=== PATIENT | female | born 1935 | race Caucasian/White ===

== ENCOUNTER → 2017-10-18 | Outpatient (CLI) | payer MEDICARE ==
--- NOTE | 2017-10-18 14:38 | Diagnostic Imaging Report ---
PROCEDURE:CHEST 2 VIEWS TECHNIQUE:PA and lateral chest INDICATION:Pain between shoulder blades; shortness of breath COMPARISON:None. FINDINGS: Mild biapical fibronodular scar. Lungs are otherwise clear. Trace left hemidiaphragm elevation. No pleural effusions. Normal heart size for technique. Mild aortic arch and descending thoracic aortic calcification. Intact skeleton. CONCLUSION: No acute abnormality. Dictated by: Yariel Key M.D. on 10/18/2017 at 14:40 Electronically approved by: Yariel Key M.D. on 10/18/2017 at 14:40
== END ==
LOC: RAD 13:38
PROVIDERS: ATTEND Internal Medicine
DX: J41.0 Simple chronic bronchitis (principal); R06.02 Shortness of breath
CPT/HCPCS: 71046

== ENCOUNTER 2018-01-18 10:25 | Observation (INO) | payer MEDICARE ==
[~2018-01-18] VITALS: Ht 172.7 cm; Wt 85.3 kg
[2018-01-18] MEDS ORDERED: ASPIRIN 81 MG CHEW TAB PO ONE ×2 (10:45→13:00)
--- NOTE | 2018-01-18 11:09 | Diagnostic Imaging Report ---
PROCEDURE: A single AP view of the chest. COMPARISON: 10/18/17 INDICATIONS: IRREGULAR HEARTBEAT FINDINGS: Lines/tubes: None. Lungs: The lungs are well inflated. Biapical scarring. There is no evidence of pneumonia or pulmonary edema. Pleura: There is no significant pleural effusion or pneumothorax. Heart and mediastinum: The cardiac silhouette is mildly enlarged. Bones: No acute bony abnormality. IMPRESSION: 1. No acute cardiopulmonary disease. Dictated by: Isreal Joyner M.D. on 01/18/2018 at 11:14 Electronically approved by: Isreal Joyner M.D. on 01/18/2018 at 11:14
[2018-01-18 11:30] LABS: BASOPHILS % 0.2 % (0.0-1.0); EOSINOPHILS # (AUTO) 0.1 (0.0-0.4); EOSINOPHILS % 0.7 % (0.0-6.0); HEMATOCRIT 38.6 % (34.2-44.1); LYMPHOCYTES # (AUTO) 0.5 (1.0-3.2); LYMPHOCYTES % 6.1 % (18.0-39.1); MEAN CORPUSCULAR HEMOGLOBIN 30.7 pg (28-32); MEAN CORPUSCULAR HGB CONC 33.7 g/dL (31-35); MEAN CORPUSCULAR VOLUME 91.3 fL (81-99); MONOCYTES # (AUTO) 0.6 (0.2-0.8); MONOCYTES % 7.3 % (4.4-11.3); NEUTROPHILS # (AUTO) 6.9 (2.1-6.9); NEUTROPHILS % 85.3 % (38.7-80.0); PLATELET COUNT 208 x10e3/uL (140-360); RED BLOOD COUNT 4.23 x10e6/uL (3.6-5.1); RED CELL DISTRIBUTION WIDTH 13.2 % (11.7-14.4)
[2018-01-18 11:41] LABS: INR 1.06
[2018-01-18 11:42] LABS: PARTIAL THROMBOPLASTIN TIME 29.2 seconds (23.8-35.5)
[2018-01-18 11:48] LABS: ALBUMIN 3.7 g/dL (3.5-5.0); ALBUMIN/GLOBULIN RATIO 0.9 (0.8-2.0); ANION GAP 15.7 mmol/L (8-16); CALCIUM 10.1 mg/dL (8.4-10.2); CREATININE, SERUM 1.39 mg/dL (0.57-1.11); POTASSIUM 4.7 mmol/L (3.5-5.1)
[2018-01-18] MEDS ORDERED: LOPRESSOR25 MG PO (11:52)
[2018-01-18] MEDS ORDERED: OMEPRAZOLE20 MG PO (11:52)
[2018-01-18] MEDS ORDERED: LOSARTAN POTAS100 MG PO (11:52)
[2018-01-18] MEDS ORDERED: LEVOTHYROXINE75 MCG PO (11:52)
[2018-01-18 11:54] LABS: CREATINE KINASE MB 6.8 ng/mL (0-5.0)
[2018-01-18] MEDS: SODIUM CHLORIDE 0.9% 1000ML 1,000 ML IV SCH (13:07)
[2018-01-18 14:00] VITALS: BP 147/67
[2018-01-18 14:09] VITALS: BP 147/67
[2018-01-18 15:11] VITALS: BP 132/71
[2018-01-18 16:45] VITALS: BP 132/71
[2018-01-18] MEDS: METOPROLOL TARTRATE 25 MG TAB PO SCH (17:19)
--- NOTE | 2018-01-18 17:56 | Consultation ---
DATE OF CONSULTATION: January 18, 2018 CARDIAC CONSULTATION REASON FOR CONSULTATION: Palpitations, arrhythmia and vague chest pain. HISTORY: This is a delightful 82-year-old lady followed as my patient for the last several years. She is known to have a history of hypertension, hypercholesterolemia and hypothyroidism. She does have definitely finding of early sick sinus syndrome. She had transient episode of atrial arrhythmias in 2009 following loss of her . Since that time patient did not have any recurrence. She was seen in my office in September 2017. She was having what seems to be stable angina-like symptoms. She does have palpitation. We discussed everything together at that time and she was quite happy with medical therapy. She does not like to do any workup at that time. Patient came to the emergency room having "I overdid it for some time. I worked on bed and brushing and so on", having right shoulder pain but more important she had palpitations this morning. The patient felt palpitations and her blood pressure was higher. Usually, her blood pressure is 120-160 over 50-60 diastolic, but this morning her blood pressure was 190/100. She was very worried. She came to the emergency room, admitted for further management. Cardiac consultation is obtained. The first set of cardiac enzymes were normal. Her BUN and creatinine were elevated at 29 and 1.39. Her CK total of 61, MB 6.8 and troponin is 0.17 which is normal for this lab. Her EKG showed sinus bradycardia, nonspecific ST changes. HOME MEDICATIONS: Metoprolol tartrate 12.5 mg twice a day. Levothyroxine 75 mcg a day. Losartan 100 mg a day. Prilosec 20 mg a day. ALLERGIES: PENICILLIN. PAST MEDICAL HISTORY: 1. Hypertension. 2. Hypercholesterolemia. 3. Hypothyroidism. 4. DJD. 5. Hysterectomy. 6. Lumpectomy and radiation therapy in 2004. 7. Colonoscopy in March 2015 with polyp removal. SOCIAL HISTORY: She is a . She never smoked. She does not drink alcohol. She is retired from [employer]. FAMILY HISTORY: Father at age 88 with CVA. Mother age 91 of old age. She was hypertensive. One brother, no sister and no children. REVIEW OF SYSTEMS: GENERAL: No fever and no chills. HEENT: Allergies and hay fever. PULMONARY: No cough, no hemoptysis. CARDIAC: As per acute illness. In addition to that, there is namely no syncope or near syncope. GI: GERD symptoms. HEMATOLOGY: Easy bruising. : Increased frequency of urination. No hematuria and no dysuria. MUSCULOSKELETAL: Back pain. NEUROLOGIC: No weakness, no localized deficits. PHYSICAL EXAMINATION VITALS: Height of 5 feet, 9 inches, weight of 191 pounds. Blood pressure 140/50. Heart rate of 50. Respiratory rate of 18. Afebrile. HEENT: Pupils are equal and reactive. NECK: No elevation of jugular venous pulsation. No bruit. CHEST: Clear to auscultation and percussion. HEART: PMI 5th left intercostal space. Normal 1st and 2nd heart sounds. Soft ejection systolic murmur. ABDOMEN: Soft with no organomegaly. No abdominal bruits. EXTREMITIES: No cyanosis. No clubbing. No edema. NEUROLOGIC: No localized deficits. She is moving all extremities and all flanks are equal. IMPRESSION 1. Atrial arrhythmias. 2. Bradycardia. 3. Dyspnea on exertion. 4. Hypertension. 5. Hypothyroidism. Cardiac-singh this patient most likely does have sick sinus syndrome as evidenced by old Holter showing bradycardia. The patient is bradycardic on almost no dose of beta patito. Her other issue angina in this age group is quite possible. Plan will be for observation on telemetry. Patient''s BUN and creatinine are elevated. Will do serial cardiac enzymes. Observe patient's progression. Depending on the results of her cardiac enzymes and finding on telemetry further steps to be done. Care is discussed and explained to the patient. She understands and questions are answered. Job#: [id number]
[2018-01-18 18:54] LABS: CREATINE KINASE MB 4.6 ng/mL (0-5.0)
[2018-01-18 20:00] VITALS: BP 170/73
[2018-01-18 20:03] VITALS: BP 170/73
[2018-01-19] VITALS: BP 130/60
[2018-01-19 04:00] VITALS: BP 131/58
[2018-01-19] MEDS: SODIUM CHLORIDE 0.9% 1000ML 1,000 ML IV SCH (04:00)
[2018-01-19 05:33] LABS: BASOPHILS % 0.4 % (0.0-1.0); EOSINOPHILS # (AUTO) 0.2 (0.0-0.4); HEMATOCRIT 34.2 % (34.2-44.1); HEMOGLOBIN 11.3 g/dL (12.0-16.0); LYMPHOCYTES # (AUTO) 0.8 (1.0-3.2); LYMPHOCYTES % 14.4 % (18.0-39.1); MEAN CORPUSCULAR HEMOGLOBIN 30.4 pg (28-32); MEAN CORPUSCULAR VOLUME 91.9 fL (81-99); MONOCYTES # (AUTO) 0.6 (0.2-0.8); MONOCYTES % 11.3 % (4.4-11.3); NEUTROPHILS # (AUTO) 3.8 (2.1-6.9); NEUTROPHILS % 70.5 % (38.7-80.0); PLATELET COUNT 172 x10e3/uL (140-360); RED BLOOD COUNT 3.72 x10e6/uL (3.6-5.1); RED CELL DISTRIBUTION WIDTH 13.3 % (11.7-14.4)
[2018-01-19 05:59] LABS: ALBUMIN 3.2 g/dL (3.5-5.0); ANION GAP 13.5 mmol/L (8-16); CALCIUM 9.1 mg/dL (8.4-10.2); CREATININE, SERUM 1.23 mg/dL (0.57-1.11); POTASSIUM 4.5 mmol/L (3.5-5.1)
[2018-01-19] MEDS ORDERED: LEVOTHYROXINE SODIUM 75 MCG TAB PO SCH (06:00)
[2018-01-19 06:19] LABS: CHOL/HDL RATIO 3.8 (3.0-3.6); THYROID STIMULATING HORMONE 1.572 uIU/mL (0.350-4.940)
[2018-01-19] MEDS ORDERED: PANTOPRAZOLE SOD 40 MG TABEC PO SCH (07:30)
[2018-01-19 07:58] VITALS: BP 178/70
[2018-01-19] MEDS: METOPROLOL TARTRATE 25 MG TAB PO SCH (08:19)
[2018-01-19] MEDS ORDERED: LOSARTAN POTASSIUM 100 MG TAB PO SCH (09:00)
--- NOTE | 2018-01-19 09:11 | History and Physical ---
SHORTSTAY SUMMARY ADMIT DIAGNOSES: 1. Hypertensive urgency. 2. Hypertensive heart disease. 3. Laolq-mo-upwnlmm diastolic congestive heart failure. 4. Vbwyq-iy-apedvtk renal failure. 5. History of stage 3 chronic kidney disease. 6. Atrial fibrillation. 7. Sinus bradycardia. HOSPITAL COURSE/HPI: This is an 82-year-old white woman, who was initially admitted to [facility] with diagnoses of hypertensive urgency and htqed-bf-rdajjal renal failure. During this hospitalization, patient's renal function did improve with intravenous fluids. Patient's BUN and creatinine were 29 and 1.39 on admission, on day of discharge were 26 and 1.23 respectively. Patient states she presented to emergency room because her blood pressure was very high on day of admission and she felt jittery. Patient denied any chest pain or tightness. In the emergency room, patient had 12-lead EKG done, which revealed sinus bradycardia, but no evidence of acute myocardial ischemia or infarction. Patient was found to have LDL cholesterol of 132 mg/dL. Patient underwent 3 sets of cardiac enzymes and they were not consistent with acute myocardial ischemia or infarction. Her hospitalization was unremarkable. Patient was seen by tubing oiler during this hospitalization, namely, Dr. Jhon Martinez, who stated the patient most likely had sick sinus syndrome, but he was going to continue low-dose beta patito namely metoprolol tartrate 12.5 mg twice a day for her atrial fibrillation. Patient did undergo a 2D echocardiogram during this hospitalization, which revealed a preserved left ventricular ejection fraction of 60% to 65%, but it did reveal findings consistent with diastolic dysfunction namely left ventricular hypertrophy and left atrial enlargement. Patient's condition on discharge was stable. PAST MEDICAL HISTORY: 1. Dyslipidemia. 2. Stage 3 chronic kidney disease. 3. Hypertensive heart disease. 4. Hypothyroidism. 5. Mild obesity. 6. Atrial fibrillation. 7. GERD. ALLERGIES: PENICILLIN. FAMILY HISTORY: Mother had heart disease but of stroke at age 91. Patient's father at age 88. SURGICAL HISTORY: 1. Total abdominal hysterectomy. 2. Bilateral salpingo-oophorectomy secondary to endometriosis in 1956. 3. Left breast lumpectomy with subsequent radiation. SOCIAL HISTORY: This woman is a . 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 No personal tobacco use, but she was exposed to second-hand tobacco smoke throughout her life. No alcohol use. Patient has no children. Patient lives alone. HOME MEDICATIONS: 1. Levothyroxine 75 mcg daily. 2. Omeprazole 20 mg daily. 3. Metoprolol tartrate 25 mg b.i.d. 4. Losartan 100 mg nightly. PHYSICAL EXAMINATION: GENERAL: She is awake, alert, and fully oriented, in no distress. Very pleasant and cooperative with exam. VITAL SIGNS: Height is 5 feet 8 inches. Weight is 188 pounds. Blood pressure on admission was 201/98, currently it is 131/58. Pulse is 53, respiratory rate is 18, oxygen saturation 100% on room air, temperature 95.0. INTEGUMENT: Skin is warm and dry. No pallor, jaundice, or diaphoresis. HEENT: Anicteric sclerae with moist mucous membranes. NECK: Supple. No evidence of jugular venous distention. CARDIOVASCULAR: Distant heart sounds. Bradycardic rate. Regular rhythm. Patient has systolic ejection murmur and S3 gallop. LUNGS: No rales, no rhonchi, no wheeze. ABDOMEN: Obese, yet benign. EXTREMITIES: No edema or deformity. NEUROLOGIC: Intact. DISCHARGE DIAGNOSES: 1. Hypertensive urgency, resolved. 2. Hypertensive heart disease. 3. Ecuff-ni-bfjbvli diastolic congestive heart failure, resolved. 4. Chronic diastolic congestive heart failure. 5. Jmfht-ni-mlcnfif renal failure, resolved. 6. Stage 3 chronic kidney disease. 7. Atrial fibrillation. 8. Bradycardia, likely iatrogenic. 9. Sick sinus syndrome, likely. PLAN: 1. Patient will continue her home medications. 2. Patient will follow up with her tubing oiler, namely Dr. Jhon Martinez in the next 2 weeks. 3. Will honor patient wishes and not start lipid-lowering therapy namely statin for her dyslipidemia. 4. Recommend that patient limit dietary sodium intake. I spent 35 minutes in the care of this patient. Job#: [id number] DR MOISE
[2018-01-19] MEDS ORDERED: AMLODIPINE BESYL5 MG PO (11:35)
[2018-01-19 11:50] VITALS: BP 147/64
== END 2018-01-19 14:16 | disposition home or self-care (01) ==
LOC: ER 10:25 → ERHOLD 13:18 → INTOOBSV 13:18 → IMCU 13:32
PROVIDERS: ADMIT Internal Medicine; ATTEND Internal Medicine
DX: I16.0 Hypertensive urgency (principal); I48.91 Unspecified atrial fibrillation; Z85.3 Personal history of malignant neoplasm of breast; I13.0 Hypertensive heart and chronic kidney disease with heart failure and stage 1 through stage 4 chronic kidney disease, or unspecified chronic kidney disease; N18.3 Chronic kidney disease, stage 3 (moderate); I50.33 Acute on chronic diastolic (congestive) heart failure; R00.2 Palpitations; K21.9 Gastro-esophageal reflux disease without esophagitis; N17.9 Acute kidney failure, unspecified; R00.1 Bradycardia, unspecified; E78.5 Hyperlipidemia, unspecified; E03.9 Hypothyroidism, unspecified; Z88.0 Allergy status to penicillin; Z82.3 Family history of stroke; Z82.49 Family history of ischemic heart disease and other diseases of the circulatory system
CPT/HCPCS: 36415 ×2; 71045; 80053 ×2; 80061; 82550 ×2; 82553 ×2; 83690; 83880; 84443; 84484 ×2; 85025 ×2; 85610; 85730; 93005; 93306; 99284; G0378 ×2; J7030 ×2; S0164

== ENCOUNTER 2018-08-20 06:08 | Observation (INO) | payer MEDICARE ==
[~2018-08-20] VITALS: Ht 175.3 cm; Wt 85.4 kg
[~2018-08-20 06:08] MED LIST: AMLODIPINE BESYL5 MG PO; LEVOTHYROXINE75 MCG PO; LOPRESSOR25 MG PO; LOSARTAN POTAS100 MG PO; OMEPRAZOLE20 MG PO
[2018-08-20] MEDS ORDERED: ENOXAPARIN INJ 80 MG/0.8 ML SYR SC STA (06:20)
[2018-08-20] MEDS ORDERED: AMIODARONE HCL 150MG 100 ML IV SCH (06:30)
[2018-08-20] MEDS ORDERED: AMIODARONE HCL 360MG 200 ML IV SCH (06:30)
[2018-08-20] MEDS ORDERED: AMIODARONE 900MG 500 ML IV ONE (06:34)
[2018-08-20 06:37] LABS: BASOPHILS % 0.6 % (0.0-1.0); EOSINOPHILS # (AUTO) 0.1 (0.0-0.4); EOSINOPHILS % 2.6 % (0.0-6.0); HEMATOCRIT 35.5 % (34.2-44.1); HEMOGLOBIN 11.9 g/dL (12.0-16.0); LYMPHOCYTES # (AUTO) 0.5 (1.0-3.2); LYMPHOCYTES % 10.1 % (18.0-39.1); MEAN CORPUSCULAR HEMOGLOBIN 30.7 pg (28-32); MEAN CORPUSCULAR HGB CONC 33.5 g/dL (31-35); MEAN CORPUSCULAR VOLUME 91.7 fL (81-99); MONOCYTES # (AUTO) 0.6 (0.2-0.8); MONOCYTES % 10.6 % (4.4-11.3); NEUTROPHILS # (AUTO) 4.1 (2.1-6.9); NEUTROPHILS % 75.9 % (38.7-80.0); PLATELET COUNT 174 x10e3/uL (140-360); RED BLOOD COUNT 3.87 x10e6/uL (3.6-5.1); RED CELL DISTRIBUTION WIDTH 12.9 % (11.7-14.4)
[2018-08-20] MEDS ORDERED: AMIODARONE 900MG 500 ML IV SCH ×3 (06:45→12:00)
[2018-08-20] MEDS ORDERED: HYDROCHLOROTHIA25 MG PO (06:48)
[2018-08-20] MEDS ORDERED: BENICAR20 MG PO (06:48)
[2018-08-20 06:56] LABS: INR 0.9; PROTHROMBIN TIME 12.6 seconds (11.9-14.5)
[2018-08-20 06:57] LABS: PARTIAL THROMBOPLASTIN TIME 32.8 seconds (23.8-35.5)
--- NOTE | 2018-08-20 07:00 | NUR ---
BEDSIDE REPORT GIVEN TO MORGAN CONTEH DAY SHIFT NURSE.
[2018-08-20 07:03] LABS: ALBUMIN 3.4 g/dL (3.5-5.0); ALBUMIN/GLOBULIN RATIO 0.9 (0.8-2.0); ANION GAP 13.7 mmol/L (8-16); CALCIUM 10.1 mg/dL (8.4-10.2); CREATININE, SERUM 1.41 mg/dL (0.57-1.11); POTASSIUM 3.7 mmol/L (3.5-5.1)
--- NOTE | 2018-08-20 07:05 | NUR ---
Xray at bedside.
--- NOTE | 2018-08-20 07:10 | NUR ---
Xray leaves bedside.
[2018-08-20 07:11] LABS: CREATINE KINASE MB 2.6 ng/mL (0-5.0)
[2018-08-20 07:20] LABS: CLARITY,URINE CLEAR (CLEAR); COLOR,URINE STRAW (YELLOW)
[2018-08-20 07:21] LABS: BILIRUBIN,URINE NEGATIVE (NEGATIVE); KETONES,URINE NEGATIVE (NEGATIVE); LEUKOCYTE ESTERASE ,URINE NEGATIVE (NEGATIVE); NITRITE,URINE NEGATIVE (NEGATIVE); PROTEIN,URINE DIPSTICK NEGATIVE (NEGATIVE); URINE UROBILINOGEN 0.2 mg/dL (0.2 - 1)
[2018-08-20 07:25] LABS: WBC,URINE (MAN) 0-5 /HPF (0-5)
[2018-08-20 07:26] LABS: EPITHELIAL CELLS,URINE FEW /LPF
--- NOTE | 2018-08-20 07:51 | Diagnostic Imaging Report ---
Examination: Single AP view of the chest. COMPARISON: None. INDICATION: Chest pain DISCUSSION: Lines/tubes: None. Lungs: The lungs are well inflated and clear. No pneumonia or pulmonary edema. Pleura: No pleural effusion or pneumothorax. Heart and mediastinum: The heart and the mediastinum are unremarkable. Bones and soft tissues: No acute bony abnormalities. IMPRESSION: 1. No acute cardiopulmonary abnormalities. Signed by: Dr. Robert Sparks M.D. on 08/20/2018 7:48 AM
[2018-08-20] MEDS ORDERED: ASPIRIN 81 MG CHEW TAB PO ONE ×2 (08:15→17:30)
--- NOTE | 2018-08-20 08:59 | NUR ---
Amiodarone az solorzano per request. Addendum: 08/20/18 at 0917 by BRANDO Amiodarone az solorzano per KARLY HARGROVE; Dr. St's request.
[2018-08-20 09:39] LABS: EOSINOPHILS % (MANUAL) 6 % (0-7); LYMPHOCYTES % (MANUAL) 9 % (19-48); MONOCYTES % (MANUAL) 11 % (3.4-9.0); NEUTROPHILS % (MANUAL) 74 % (40-74); PLATELET ESTIMATE ADEQUATE; PLATELET MORPHOLOGY COMMENT NORMAL; RBC MORPHOLOGY COMMENT NORMAL
[2018-08-20 09:58] VITALS: BP 163/67
--- NOTE | 2018-08-20 10:29 | NUR ---
Recvd patient from ER, AAOx3, Denies any chest pain or SOB, assisted her to bed, call light in reach, resp even and unlabored , paged Dr Juan Chen for the consult
--- NOTE | 2018-08-20 11:25 | NUR ---
Dr Poole here for rounds
[2018-08-20 11:30] VITALS: BP 163/67
[2018-08-20 11:34] VITALS: BP 156/65
--- NOTE | 2018-08-20 14:48 | History and Physical ---
HISTORY OF PRESENT ILLNESS: An 83 years old white female with past medical history positive for hypertension and paroxysmal atrial fibrillation. Apparently, she was doing well and then suddenly started having chest pain and palpitations. She came to the emergency room, she was found to have atrial fibrillation with rapid ventricular response, amiodarone was given and heart rate was under control. The patient is chest pain-free right now. REVIEW OF SYSTEMS: CARDIOVASCULAR: She had palpitation and chest pain, which were resolved after heart rate was under control with amiodarone in the emergency room. No shortness of breath and no palpitation right now. RESPIRATORY: No shortness of breath. No cough. GASTROINTESTINAL: No nausea, no vomiting, no diarrhea. GENITOURINARY: No urinary frequency. No dysuria. ALLERGIES: SHE IS ALLERGIC TO PENICILLIN. SOCIAL HISTORY: She does not smoke. She does not drink. PAST MEDICAL HISTORY: Hypertension, history of paroxysmal atrial fibrillation. She had a prior episode of . PHYSICAL EXAMINATION: VITAL SIGNS: Blood pressure 163/67, temperature 96.7, heart rate 67 per minute, respiratory rate 18 per minute, oxygen saturation 100%. HEART: Showed regular rhythm. No murmur or added sound. LUNGS: Clear bilaterally. ABDOMEN: Soft. EXTREMITIES: Show no evidence of cyanosis, edema, or trauma. DIAGNOSTIC STUDIES: EKG show atrial fibrillation with rapid ventricular response. No evidence of any ST-segment elevation or depression. IMPRESSION: 1. Paroxysmal atrial fibrillation with rapid ventricular response, in normal sinus rhythm right now. 2. Hypertension with chronic renal failure. 3. Acute on chronic renal failure stage 3. 4. Hypertension with chronic renal insufficiency. 5. Anemia of chronic disease according to chronic renal insufficiency. 6. Chest pain more likely related to the episode of atrial fibrillation. PLAN OF TREATMENT: Cardiology consultation scheduled with telemetry. She received a bolus of amiodarone. She received a one time dose of Lovenox. She was started on aspirin. I am going to start her on metoprolol twice a day twice a day and also Eliquis 5 mg p.o. twice a day. The patient is feeling much much better right now. We are going to repeat a BMP tomorrow. Raman Virgilio, MD LAS/MAIA /[id number]
[2018-08-20 15:37] VITALS: BP 164/70
--- NOTE | 2018-08-20 16:55 | NUR ---
Spoked with Dr Juan Chen regarding lab results and patient's condition, new orders recvd to give aspirin 81mg 1 dose now, [id number] BID, He said he will see patient medical record consultant tomorrow, patient aware
[2018-08-20] MEDS: METOPROLOL TARTRATE 25 MG TAB PO SCH (17:15)
[2018-08-20] MEDS: DRONEDARONE 400 MG TAB PO SCH (17:25)
[2018-08-20] MEDS: PANTOPRAZOLE SOD 40 MG TABEC PO SCH (17:53)
[2018-08-20] MEDS: APIXABAN 5 MG TABLET PO SCH (17:53)
--- NOTE | 2018-08-20 18:24 | NUR ---
patient resting in bed, alert with no distress, call light in reach
--- NOTE | 2018-08-20 19:00 | NUR ---
Report and rounds completed. Resting in bed watching TV. No issues or concerns. Call light within reach. Will Continue to monitor.
[2018-08-20 20:00] VITALS: BP 131/60
--- NOTE | 2018-08-20 22:00 | NUR ---
In bed watching TV. No issues or concerns at this time.Call light within reach. Will continue to monitor.
[2018-08-21] VITALS: BP 155/63
[2018-08-21 00:38] LABS: CREATINE KINASE MB 4.3 ng/mL (0-5.0)
--- NOTE | 2018-08-21 00:47 | NUR ---
Tele called and stated HR 48. Patient lying in bed on left side. Denies any sob or chest pain. Informed that heart rate in 40's and stated " that is not unusual for me to be in 40's."Will continue to monitor.
--- NOTE | 2018-08-21 02:00 | NUR ---
Resting in bed, eyes closed resp even and unlabored. Call light within reach. Will continue to monitor.
[2018-08-21 05:03] LABS: BASOPHILS % 0.2 % (0.0-1.0); EOSINOPHILS # (AUTO) 0.2 (0.0-0.4); HEMATOCRIT 32.4 % (34.2-44.1); HEMOGLOBIN 10.7 g/dL (12.0-16.0); LYMPHOCYTES # (AUTO) 0.7 (1.0-3.2); LYMPHOCYTES % 14.8 % (18.0-39.1); MEAN CORPUSCULAR HEMOGLOBIN 30.6 pg (28-32); MEAN CORPUSCULAR VOLUME 92.6 fL (81-99); MONOCYTES # (AUTO) 0.7 (0.2-0.8); MONOCYTES % 13.6 % (4.4-11.3); NEUTROPHILS # (AUTO) 3.4 (2.1-6.9); NEUTROPHILS % 68.2 % (38.7-80.0); PLATELET COUNT 178 x10e3/uL (140-360); RED CELL DISTRIBUTION WIDTH 12.9 % (11.7-14.4)
[2018-08-21 05:32] LABS: ANION GAP 10.6 mmol/L (8-16); CALCIUM 9.4 mg/dL (8.4-10.2); CREATININE, SERUM 1.43 mg/dL (0.57-1.11); POTASSIUM 4.6 mmol/L (3.5-5.1)
[2018-08-21 05:47] LABS: CHOL/HDL RATIO 4.1 (3.0-3.6)
[2018-08-21] MEDS ORDERED: LEVOTHYROXINE SODIUM 75 MCG TAB PO SCH (06:00)
[2018-08-21] MEDS ORDERED: OLMESARTAN 20 MG TAB PO SCH (06:00)
--- NOTE | 2018-08-21 06:00 | NUR ---
Just finished shower. Sitting in bed. Call light within reach. No issues or concerns. Will continue to monitor.
--- NOTE | 2018-08-21 07:00 | NUR ---
rounded with car shifter nurse, patient aware of change. Patient in no distress, call villalpando within reach and bed in lowest position.
[2018-08-21 08:00] VITALS: BP 153/65
[2018-08-21] MEDS: PANTOPRAZOLE SOD 40 MG TABEC PO SCH (08:00)
[2018-08-21] MEDS: DRONEDARONE 400 MG TAB PO SCH (08:00)
[2018-08-21 08:24] VITALS: BP 153/65
[2018-08-21] MEDS ORDERED: MULTAQ400 MG PO (09:10)
[2018-08-21] MEDS ORDERED: ASPIRIN81 MG PO (09:11)
[2018-08-21] MEDS: APIXABAN 5 MG TABLET PO SCH (09:30)
[2018-08-21] MEDS: METOPROLOL TARTRATE 25 MG TAB PO SCH (09:30)
--- NOTE | 2018-08-21 10:30 | NUR ---
Patient alert and oriented. Discharge instructions given at this time, patient verbalized understanding. IV discontinued at this time, catheter in tact and pressure dressing applied. Patient to be wheeled from floor via wheelchair to personal auto for friend to drive home.
--- NOTE | 2018-08-21 13:59 | Consultation ---
DATE OF CONSULTATION: 08/21/2018 Cardiology Consultation REASON FOR CONSULTATION: Atrial fibrillation and chest pain. HISTORY OF PRESENT ILLNESS: Ms. Zelaya is a delightful 83-year-old lady, who is known to us, with history of hypertension, hypercholesterolemia, hypothyroidism, and signs of early sick sinus syndrome. She has had history of paroxysmal atrial arrhythmias in the past, specifically an episode of atrial fibrillation 10 years ago and most recently January 2018. At that time, we had a long discussion with her in terms of pharmacotherapy; however, due to her perceived risks and benefits, the patient has refused traditional therapy for atrial fibrillation and was hesitant for any sort of blood thinner therapy. The patient reports that at 4:30 the night before in the morning, she had 1-hour episode of heart racing, beating very fast associated with mild substernal chest discomfort and just not feeling well. She reports checking her vital signs and noted her blood pressure was 130s/70, however, her heart rate was noted to be 150s-160s. She called EMS due to persistence of symptoms and brought her into the emergency room here at [facility], where she was noted to be in AFib with RVR and EKG showing some subendocardial ischemia with this rapid heart rate. She was initiated on IV amiodarone infusion, which popped her back into normal sinus rhythm and received dose of Lovenox. Since then, here she has had no further recurrences of any atrial arrhythmias and was stared on Eliquis therapy empirically. We are visiting the patient today with a long discussion in terms of natural history of atrial fibrillation and re-discussion of different pharmacotherapy options including rate rhythm control as well as need for systemic anticoagulant therapy for thromboembolic prophylaxis purposes. The patient denies any palpitations yesterday and denies any more chest discomfort. Upon discussion of review of systems, the patient does report a history of longstanding GERD for which she takes Prilosec every other day. She does report when she eats that she frequently has a dysphagia type symptom that last 20 minutes and states that in the process interested in going to Dr. Smith, her GI, for further evaluation. We had a long discussion today and the patient is hesitant and not interested in full anticoagulant therapy at this time and states that she needs to talk to her friends first to get their impression of it. The patient denies any syncope or near syncope. PAST MEDICAL HISTORY: 1. Hypertension, essential. 2. Hypercholesterolemia. 3. Hypothyroidism. 4. History of hysterectomy. 5. DJD. 6. GERD. 7. History of lumpectomy and radiation therapy in 2004. 8. History of colonoscopy in March 2015 with polyp removal. 9. History of paroxysmal AFib as noted above. FAMILY HISTORY: Father at 88 with a stroke. Mother at 91 with old age. One brother, no sister, and no children. SOCIAL HISTORY: She is . She is a lifelong nonsmoker. Denies any alcohol or illicit drug use. ALLERGIES: PENICILLIN. CURRENT MEDICATIONS: At home include hydrochlorothiazide 12.5 mg daily, Synthroid 75 mcg daily, Dyalsl19.5 daily, Benicar 40 mg daily, Prilosec 20 mg every other day. REVIEW OF SYSTEMS: GENERAL: Denies any fevers, chills, or changes. HEENT: Has seasonal allergies and hay fever, but denies any visual complaints, sore throat, stuffiness. RESPIRATORY: Denies any pleuritic chest pain, shortness of breath, or cough. CARDIOVASCULAR: As per HPI. GI: Does have chronic GERD symptoms as noted above with dysphagia. Denies any bright red blood per rectum, melena, or hematemesis. HEMATOLOGY: Positive for mild anemia and easy bruising. : Denies any pyuria or hematuria. Does have occasional urge incontinence and urinary frequency. MUSCULOSKELETAL: Has chronic lower back pain. Denies any leg swelling or typical claudications. SKIN: No rashes. NEUROLOGIC: Denies any focal weakness, numbness, tingling, seizures, headache, or history of TIA or stroke. Remainder of review of systems is negative for other PHYSICAL EXAMINATION: VITAL SIGNS: Height of 69 inches, weight of 188 pounds, BMI is 27.8. Temperature of 97.9, pulse of 53, respiratory rate of 20, blood pressure of 155/63, and O2 sat 98% on room air. GENERAL: This is a well-nourished, well-developed lady, who is currently in no apparent distress. HEENT: Normocephalic, atraumatic. Pupils are equal, round, and reactive. Extraocular movements are intact. Oropharynx is clear. NECK: No elevation of jugular venous pulsation. No carotid bruits. CARDIOVASCULAR: Bradycardic. Normal S1, S2. Soft 1/6 systolic murmur at left lower sternal border. LUNGS: Clear to auscultation bilaterally with good air entry. ABDOMEN: Soft, nontender, and nondistended. Normoactive bowel sounds. No hepatosplenomegaly. BACK: No costovertebral angle tenderness. EXTREMITIES: Warm with 1 to 2+ bilateral radial pulses, 1+ pedal pulses. No edema. NEUROLOGIC: Cranial nerves II through XII are intact. Sensory grossly nonfocal. PSYCH: Normal fluent speech. Appropriate affect. No LABORATORY DATA: White count 4.9, hemoglobin 10.7, hematocrit 32.4, platelets are 178. Sodium 136, potassium 4.6, chloride 105, bicarb 25, BUN 35, creatinine 1.43. INR is 0.9. Total cholesterol 224, HDL 55, LDL 148. Troponin went from 0.013 to 0.288 to 0.238. Chest x-ray is unremarkable. EKG revealed atrial fibrillation with rapid ventricular response, heart rate more than 140s and some changes concerning for subendocardial ischemia. DIAGNOSES: 1. Paroxysmal atrial fibrillation with rapid ventricular response, has previously refused traditional therapy. 2. Hypertension, essential. 3. Marginally elevated troponin secondary to paroxysmal atrial fibrillation with rapid ventricular response. 4. Likely element of sick sinus syndrome/tachybrady syndrome without symptoms at the present time. 5. Hypercholesterolemia. 6. Hypothyroidism. 7. Gastroesophageal reflux disease. 8. Anemia. PLAN/RECOMMENDATIONS: 1. We had extensive discussion today with the patient in terms of underlying rhythm issues and introduced concept of different pharmacotherapy options along with their limitations. The patient would not likely be a good candidate for more aggressive rate control in light of her underlying low heart rate and bradycardia. 2. We will recommend rhythm control strategy and due to her concerns of different side effects, we will attempt to try to give her Multaq for now. 3. In terms of thromboembolic prophylaxis, we discussed anticoagulant therapy versus antiplatelet therapy and the patient is adamantly against anticoagulant therapy for the time being despite noting that this is the standard of care. In the meantime, she wishes just to be on aspirin daily and we will discuss with her as an outpatient in terms of different pharmacotherapy options. 4. We can consider ischemic risk stratification as an outpatient, but believe that her cardiopulmonary symptoms were largely due to her rhythm abnormality with borderline elevation of troponin. 5. From a cardiovascular standpoint, okay to go home and we can follow up with her within one week's worth of time. MD CHEN Salas/MAIA /[id number]
--- NOTE | 2018-08-22 10:23 | Discharge Summary ---
ADMITTING DIAGNOSES: 1. Paroxysmal atrial fibrillation. 2. Hypertensive heart disease. 3. Stage 3 chronic kidney disease. 4. Chronic diastolic congestive heart failure. DISCHARGE DIAGNOSES: 1. Paroxysmal atrial fibrillation. 2. Hypertensive heart disease. 3. Chronic diastolic congestive heart failure. 4. Stage 3 chronic kidney disease. 5. Hyperlipidemia. 6. Statin intolerance. HOSPITAL COURSE: This is an 83-year-old white woman who was admitted to [facility] with diagnosis of paroxysmal atrial fibrillation. She also has an underlying history of hypertension, stage 3 chronic kidney disease, and diastolic heart failure. The patient underwent echocardiogram during this hospitalization, which revealed a preserved left ventricular ejection fraction of 55%, but it did reveal findings consistent with diastolic heart failure namely left atrial enlargement as well as concentric left ventricular hypertrophy. During this hospitalization, the patient was initially given subcutaneous enoxaparin and oral apixaban for atrial fibrillation. The patient stated that she did not want to proceed with any anticoagulation. She was also found to have an elevated LDL cholesterol during this hospitalization with a level of 148 mg/dL. The patient's total cholesterol is 224 mg/dL. The patient's HDL cholesterol is 55 mg/dL. The patient's triglycerides were 103 mg/dL. The patient states she has a history of statin intolerance, specifically she experiences extreme leg cramps when she takes statin therapy. The patient was seen by her measurement supervisor during this hospitalization, Dr. Evert Martinez. She also underwent serial electrocardiograms as well as cardiac enzymes, which did not reveal any evidence of acute myocardial ischemia or infarction. Her brief hospitalization was unremarkable. CONDITION ON DISCHARGE: Stable. DISCHARGE MEDICATIONS: 1. Multaq 400 mg b.i.d. 2. Benicar 40 mg daily. 3. Pantoprazole 40 mg daily. 4. Metoprolol tartrate 12.5 mg b.i.d. 5. Levothyroxine 75 mcg daily. FOLLOWUP INSTRUCTIONS: The patient is instructed to follow up with Dr. Evert Martinez within next 7-10 days and with her primary care physician namely myself, Dr. Travis Tesfaye within 2 weeks. MD DCIK Anthony/MAIA /[id number]
== END 2018-08-21 10:47 | disposition home or self-care (01) ==
LOC: ER 06:08 → ERHOLD 08:07 → IMCU 09:58
PROVIDERS: ADMIT Internal Medicine; ATTEND Internal Medicine
DX: I48.0 Paroxysmal atrial fibrillation (principal); I13.0 Hypertensive heart and chronic kidney disease with heart failure and stage 1 through stage 4 chronic kidney disease, or unspecified chronic kidney disease; I50.32 Chronic diastolic (congestive) heart failure; N18.3 Chronic kidney disease, stage 3 (moderate); N17.9 Acute kidney failure, unspecified; E03.9 Hypothyroidism, unspecified; D63.1 Anemia in chronic kidney disease; E78.5 Hyperlipidemia, unspecified; E78.00 Pure hypercholesterolemia, unspecified; K21.9 Gastro-esophageal reflux disease without esophagitis; D64.9 Anemia, unspecified; Z82.49 Family history of ischemic heart disease and other diseases of the circulatory system; Z88.8 Allergy status to other drugs, medicaments and biological substances
CPT/HCPCS: 36415 ×2; 71045; 80048; 80053; 80061; 81001; 82550; 82553; 84484; 85025 ×2; 85610; 85730; 93005; 93306; 99284; G0378 ×2; J1650; S0164 ×2

== ENCOUNTER 2018-12-05 22:34 | Emergency (ER) | payer MEDICARE ==
[~2018-12-05] VITALS: Ht 175.3 cm; Wt 85.3 kg
[~2018-12-05 22:34] MED LIST changes: +ASPIRIN81 MG PO; +BENICAR20 MG PO; +HYDROCHLOROTHIA25 MG PO; +MULTAQ400 MG PO
[2018-12-06 00:18] VITALS: BP 148/48
== END 2018-12-06 00:22 | disposition home or self-care (01) ==
LOC: ER 22:34
DX: I10 Essential (primary) hypertension (principal)
CPT/HCPCS: 99283

== ENCOUNTER 2019-03-11 22:02 | Emergency (ER) | payer MEDICARE ==
[~2019-03-11] VITALS: Ht 175.3 cm; Wt 83.9 kg
== END 2019-03-11 23:20 | disposition home or self-care (01) ==
LOC: FSED 22:02
DX: K64.4 Residual hemorrhoidal skin tags (principal); I12.9 Hypertensive chronic kidney disease with stage 1 through stage 4 chronic kidney disease, or unspecified chronic kidney disease; N18.9 Chronic kidney disease, unspecified; I48.91 Unspecified atrial fibrillation; E03.9 Hypothyroidism, unspecified; K21.9 Gastro-esophageal reflux disease without esophagitis; Z85.3 Personal history of malignant neoplasm of breast; Z79.82 Long term (current) use of aspirin
CPT/HCPCS: 80053; 85025; 85610; 99283

== ENCOUNTER → 2019-06-15 | Outpatient (CLI) | payer MEDICARE ==
[~2019-06-15] MED LIST changes: +LEVAQUIN500 MG PO; +PREDNISONE20 MG PO; +SYMBICORT 16010.2 GM IH
--- NOTE | 2019-06-15 13:54 | Diagnostic Imaging Report ---
Chest, PA and lateral. History: Cough. Comparison: 08/20/2018, 2017, 10/18/2017 Discussion: The cardiomediastinal silhouette and pulmonary vasculature are within normal limits. The lungs are clear without evidence of consolidation or effusion. There are no acute osseous abnormalities. IMPRESSION: No radiographic evidence of acute cardiopulmonary abnormality. Signed by: Dave Cool MD on 06/15/2019 1:51 PM
== END ==
LOC: RAD 12:41
PROVIDERS: ATTEND Internal Medicine
DX: R05 Cough (principal)
CPT/HCPCS: 71046

== ENCOUNTER 2019-08-16 12:49 | Outpatient (RCR) | payer MEDICARE | END 2019-08-18 | LOC: PT 12:49 | PROVIDERS: ATTEND Specialist | DX: S13.4XXA Sprain of ligaments of cervical spine, initial encounter (principal); M54.2 Cervicalgia; M62.81 Muscle weakness (generalized); R29.3 Abnormal posture ==

== ENCOUNTER 2019-09-04 13:00 | Outpatient (RCR) | payer MEDICARE | END 2019-09-18 | LOC: PT 13:00 | PROVIDERS: ATTEND Specialist | DX: S13.4XXA Sprain of ligaments of cervical spine, initial encounter (principal); M54.2 Cervicalgia; M62.81 Muscle weakness (generalized); R29.3 Abnormal posture ==

== ENCOUNTER 2020-10-16 09:57 | Outpatient (RCR) | payer MEDICARE | END 2020-10-17 | LOC: PT 09:57 | PROVIDERS: ATTEND Internal Medicine | DX: M51.36 Other intervertebral disc degeneration, lumbar region (principal) ==

== ENCOUNTER 2020-11-13 09:46 | Outpatient (RCR) | payer MEDICARE | END 2020-11-17 | LOC: PT 09:46 | PROVIDERS: ATTEND Internal Medicine ==

== ENCOUNTER 2020-12-11 10:43 | Outpatient (RCR) | payer MEDICARE | END 2020-12-17 | LOC: PT 10:43 | PROVIDERS: ATTEND Internal Medicine | DX: M51.86 Other intervertebral disc disorders, lumbar region (principal) ==

== ENCOUNTER 2022-01-16 10:57 | Observation (INO) | payer MEDICARE ==
[~2022-01-16] VITALS: Ht 172.7 cm; Wt 93.0 kg
[2022-01-16] MEDS ORDERED: LACTATED RINGER'S 1,000 ML INJ ONE (11:30)
[2022-01-16 11:33] LABS: BASOPHILS % 0.3 % (0.0-1.0); EOSINOPHILS % 0.1 % (0.0-6.0); HEMATOCRIT 41.2 % (34.2-44.1); LYMPHOCYTES # (AUTO) 0.5 (1.0-3.2); LYMPHOCYTES % 7.5 % (18.0-39.1); MEAN CORPUSCULAR HEMOGLOBIN 32.3 pg (28-32); MEAN CORPUSCULAR VOLUME 95.2 fL (81-99); MONOCYTES # (AUTO) 0.5 (0.2-0.8); MONOCYTES % 7.8 % (4.4-11.3); NEUTROPHILS # (AUTO) 5.7 (2.1-6.9); PLATELET COUNT 263 x10e3/uL (140-360); RED BLOOD COUNT 4.33 x10e6/uL (3.6-5.1); RED CELL DISTRIBUTION WIDTH 12.3 % (11.7-14.4)
[2022-01-16 11:49] LABS: ALBUMIN 3.7 g/dL (3.5-5.0); ALBUMIN/GLOBULIN RATIO 0.9 (0.8-2.0); ANION GAP 18.9 mmol/L (8-16); CALCIUM 9.4 mg/dL (8.4-10.2); CREATININE, SERUM 1.64 mg/dL (0.57-1.11); POTASSIUM 4.9 mmol/L (3.5-5.1)
[2022-01-16] MEDS ORDERED: METOPROLOL TARTRATE INJ 1 MG/ML VIAL IV ONE ×2 (12:15)
[2022-01-16] MEDS: FUROSEMIDE INJ 10 MG/ML 4 ML VIAL IV SCH ×2 (13:46→16:05)
[2022-01-16] MEDS: LOSARTAN POTASSIUM 100 MG TAB PO SCH (13:59)
[2022-01-16] MEDS ORDERED: LOSARTAN POTASSIUM 25 MG TAB ONE (14:05)
[2022-01-16] MEDS: AMIODARONE HCL 200 MG TAB PO SCH ×2 (16:04→17:50)
[2022-01-16] MEDS: APIXAB 2.5 MG TABLET PO SCH (16:06)
[2022-01-16] MEDS: METOPROLOL SUCCINATE 25 MG TAB XL PO SCH (16:07)
[2022-01-16 16:56] VITALS: BP 147/62
[2022-01-16 17:26] VITALS: BP 147/62
[2022-01-16 17:35] VITALS: BP 147/62
[2022-01-16] MEDS ORDERED: NIFEDIPINE ER30 M1 PO (17:48)
[2022-01-16] MEDS ORDERED: METOPROLOL TART25 MG PO (17:48)
[2022-01-16] MEDS ORDERED: FUROSEMIDE40 MG PO (17:48)
[2022-01-16] MEDS ORDERED: ELIQUIS2.5 MG PO (17:48)
[2022-01-16] MEDS ORDERED: LOSARTAN POTAS100 MG PO (17:48)
[2022-01-16 20:00] VITALS: BP 126/77
[2022-01-17 00:43] VITALS: BP 120/63
[2022-01-17 04:00] VITALS: BP 118/68
[2022-01-17] MEDS ORDERED: OLMESARTAN 20 MG TAB PO SCH (06:00)
[2022-01-17 06:26] LABS: BASOPHILS % 0.2 % (0.0-1.0); EOSINOPHILS # (AUTO) 0.1 (0.0-0.4); EOSINOPHILS % 1.8 % (0.0-6.0); HEMATOCRIT 37.3 % (34.2-44.1); HEMOGLOBIN 12.5 g/dL (12.0-16.0); LYMPHOCYTES # (AUTO) 0.5 (1.0-3.2); MEAN CORPUSCULAR HGB CONC 33.5 g/dL (31-35); MEAN CORPUSCULAR VOLUME 95.4 fL (81-99); MONOCYTES # (AUTO) 0.7 (0.2-0.8); MONOCYTES % 12.3 % (4.4-11.3); NEUTROPHILS # (AUTO) 4.6 (2.1-6.9); NEUTROPHILS % 76.5 % (38.7-80.0); PLATELET COUNT 194 x10e3/uL (140-360); RED BLOOD COUNT 3.91 x10e6/uL (3.6-5.1); RED CELL DISTRIBUTION WIDTH 12.5 % (11.7-14.4)
[2022-01-17] MEDS ORDERED: LEVOTHYROXINE SODIUM 75 MCG TAB PO SCH (06:30)
[2022-01-17 06:52] LABS: ALBUMIN 3.2 g/dL (3.5-5.0); CALCIUM 9.1 mg/dL (8.4-10.2); CREATININE, SERUM 1.63 mg/dL (0.57-1.11)
[2022-01-17 08:05] VITALS: BP 126/67
[2022-01-17 08:23] LABS: EOSINOPHILS % (MANUAL) 1 % (0-7); LYMPHOCYTES % (MANUAL) 14 % (19-48); METAMYELOCYTES % (MANUAL) 1 % (0-0); MONOCYTES % (MANUAL) 8 % (3.4-9.0); NEUTROPHILS % (MANUAL) 70 % (40-74)
[2022-01-17 08:25] VITALS: BP 126/67
[2022-01-17 08:29] LABS: RBC MORPHOLOGY COMMENT NORMAL
[2022-01-17 08:30] LABS: PLATELET ESTIMATE ADEQUATE; PLATELET MORPHOLOGY COMMENT NORMAL
[2022-01-17] MEDS: FUROSEMIDE INJ 10 MG/ML 4 ML VIAL IV SCH (08:39)
[2022-01-17] MEDS: LOSARTAN POTASSIUM 100 MG TAB PO SCH (08:40)
[2022-01-17] MEDS: APIXAB 2.5 MG TABLET PO SCH (08:40)
[2022-01-17] MEDS: AMIODARONE HCL 200 MG TAB PO SCH (08:40)
[2022-01-17] MEDS: METOPROLOL SUCCINATE 25 MG TAB XL PO SCH (08:40)
[2022-01-17] MEDS ORDERED: PANTOPRAZOLE SOD 40 MG TABEC PO SCH (10:00)
[2022-01-17 12:05] VITALS: BP 123/59
[2022-01-17] MEDS ORDERED: AMIODARONE HCL100 MG PO (13:35)
[2022-01-17] MEDS ORDERED: METOPROLOL SUCC25 MG PO (13:36)
== END 2022-01-17 14:06 | disposition home or self-care (01) ==
LOC: ER 11:05 → ERHOLD 12:31 → INTOOBSV 12:31 → MED/SURG3 16:42
PROVIDERS: ADMIT Internal Medicine; ATTEND Internal Medicine
DX: I48.20 Chronic atrial fibrillation, unspecified (principal); I13.0 Hypertensive heart and chronic kidney disease with heart failure and stage 1 through stage 4 chronic kidney disease, or unspecified chronic kidney disease; N18.30 Chronic kidney disease, stage 3 unspecified; E03.9 Hypothyroidism, unspecified; E78.5 Hyperlipidemia, unspecified; Z20.822 Contact with and (suspected) exposure to COVID-19; K21.9 Gastro-esophageal reflux disease without esophagitis; N17.9 Acute kidney failure, unspecified; Z88.0 Allergy status to penicillin; Z88.8 Allergy status to other drugs, medicaments and biological substances; I50.33 Acute on chronic diastolic (congestive) heart failure
CPT/HCPCS: 36415 ×2; 71045; 80053 ×2; 83880; 84443; 84484; 85025 ×2; 93005; 94799 ×2; 99285; G0378 ×2; J1940 ×2; J7121; U0002

== ENCOUNTER → 2022-07-07 | Day surgery (SDC) | payer MEDICARE ==
[2022-06-30 13:01] LABS: BASOPHILS % 0.6 % (0.0-1.0); EOSINOPHILS # (AUTO) 0.1 (0.0-0.4); EOSINOPHILS % 2.1 % (0.0-6.0); HEMATOCRIT 34.4 % (34.2-44.1); HEMOGLOBIN 11.2 g/dL (12.0-16.0); LYMPHOCYTES # (AUTO) 0.6 (1.0-3.2); LYMPHOCYTES % 9.2 % (18.0-39.1); MEAN CORPUSCULAR HEMOGLOBIN 32.4 pg (28-32); MEAN CORPUSCULAR HGB CONC 32.6 g/dL (31-35); MEAN CORPUSCULAR VOLUME 99.4 fL (81-99); MONOCYTES # (AUTO) 0.7 (0.2-0.8); MONOCYTES % 11.1 % (4.4-11.3); NEUTROPHILS # (AUTO) 5.1 (2.1-6.9); NEUTROPHILS % 76.7 % (38.7-80.0); PLATELET COUNT 193 x10e3/uL (140-360); RED BLOOD COUNT 3.46 x10e6/uL (3.6-5.1); RED CELL DISTRIBUTION WIDTH 12.6 % (11.7-14.4)
[~2022-07-07] MED LIST changes: +AMIODARONE HCL100 MG PO; +ELIQUIS2.5 MG PO; +FENTANYL CITRATE/PF 100MCG/2 ML INJ ONE; +FUROSEMIDE40 MG PO; +GLYCOPYRROLATE INJ 0.2 MG/ML VIAL ONE; +HYOSCYAMINE SULFATE 0.5 MG/ML INJ ONE; +METOPROLOL SUCC25 MG PO; +METOPROLOL TART25 MG PO; +MIDAZOLAM HCL 2 MG/2 ML VIAL ONE; +NIFEDIPINE ER30 M1 PO; +PROPOFOL IV EMULSION 10 MG/ML 20 ML VIAL ONE; +PROPOFOL IV EMULSION 10 MG/ML 50 ML VIAL IV ONE; +PROPOFOL IV EMULSION 50 ML IV ONE
[2022-07-07 10:45] VITALS: BP 122/53
== END | disposition home or self-care (01) ==
LOC: OR 06-30 12:19
PROVIDERS: ATTEND Internal Medicine Gastroenterology
DX: K29.50 Unspecified chronic gastritis without bleeding (principal); D12.4 Benign neoplasm of descending colon; K31.7 Polyp of stomach and duodenum; K31.89 Other diseases of stomach and duodenum; K20.90 Esophagitis, unspecified without bleeding; K44.9 Diaphragmatic hernia without obstruction or gangrene; K59.09 Other constipation; K57.30 Diverticulosis of large intestine without perforation or abscess without bleeding; K64.8 Other hemorrhoids; Z71.3 Dietary counseling and surveillance; I11.0 Hypertensive heart disease with heart failure; I50.9 Heart failure, unspecified; I48.91 Unspecified atrial fibrillation; R00.1 Bradycardia, unspecified; E03.9 Hypothyroidism, unspecified; Z88.0 Allergy status to penicillin; Z88.8 Allergy status to other drugs, medicaments and biological substances; Z01.810 Encounter for preprocedural cardiovascular examination; Z01.812 Encounter for preprocedural laboratory examination; Z79.02 Long term (current) use of antithrombotics/antiplatelets; Z79.899 Other long term (current) drug therapy; Z68.25 Body mass index [BMI] 25.0-25.9, adult
CPT/HCPCS: 36415; 43239; 45380; 45385; 85025; 88305; 88342; 93005; C9113; J1980; J2250; J2704 ×2; J3010; 45378; 88304; 88312

== ENCOUNTER 2023-07-27 09:30 | Emergency (ER) | payer MEDICARE ==
[~2023-07-27] VITALS: Ht 175.3 cm; Wt 78.5 kg
[~2023-07-27 09:30] MED LIST changes: -FENTANYL CITRATE/PF 100MCG/2 ML INJ ONE; -GLYCOPYRROLATE INJ 0.2 MG/ML VIAL ONE; -HYOSCYAMINE SULFATE 0.5 MG/ML INJ ONE; -MIDAZOLAM HCL 2 MG/2 ML VIAL ONE; -PROPOFOL IV EMULSION 10 MG/ML 20 ML VIAL ONE; -PROPOFOL IV EMULSION 10 MG/ML 50 ML VIAL IV ONE; -PROPOFOL IV EMULSION 50 ML IV ONE
[2023-07-27] MEDS ORDERED: SODIUM CHLORIDE 0.9% 1000ML 1,000 ML IV STA (09:54)
[2023-07-27] MEDS ORDERED: ONDANSETRON HCL INJ 2MG/ML 2ML 2 MG/ML VIAL IV PRN (10:00)
[2023-07-27 10:27] LABS: BASOPHILS % 0.3 % (0.0-1.0); EOSINOPHILS # (AUTO) 0.1 (0.0-0.4); EOSINOPHILS % 1.4 % (0.0-6.0); HEMATOCRIT 37.3 % (34.2-44.1); HEMOGLOBIN 11.8 g/dL (12.0-16.0); LYMPHOCYTES # (AUTO) 0.4 (1.0-3.2); LYMPHOCYTES % 6.3 % (18.0-39.1); MEAN CORPUSCULAR HEMOGLOBIN 31.6 pg (28-32); MEAN CORPUSCULAR HGB CONC 31.6 g/dL (31-35); MEAN CORPUSCULAR VOLUME 99.7 fL (81-99); MONOCYTES # (AUTO) 0.6 (0.2-0.8); NEUTROPHILS # (AUTO) 4.8 (2.1-6.9); NEUTROPHILS % 81.7 % (38.7-80.0); PLATELET COUNT 167 x10e3/uL (140-360); RED BLOOD COUNT 3.74 x10e6/uL (3.6-5.1); RED CELL DISTRIBUTION WIDTH 13.3 % (11.7-14.4)
[2023-07-27 10:33] LABS: COLOR,URINE YELLOW (YELLOW)
[2023-07-27 10:34] LABS: BILIRUBIN,URINE NEGATIVE (NEGATIVE); CLARITY,URINE CLEAR (CLEAR); GLUCOSE, URINE NEGATIVE (NEGATIVE); KETONES,URINE NEGATIVE (NEGATIVE); LEUKOCYTE ESTERASE ,URINE TRACE (NEGATIVE); NITRITE,URINE NEGATIVE (NEGATIVE); PH,URINE 5.5 (5 - 7); PROTEIN,URINE DIPSTICK NEGATIVE (NEGATIVE); URINE UROBILINOGEN 0.2 mg/dL (0.2 - 1)
[2023-07-27 10:35] VITALS: O2SAT 99
[2023-07-27 10:46] LABS: ALBUMIN 3.4 g/dL (3.5-5.0); ALBUMIN/GLOBULIN RATIO 0.9 (0.8-2.0); ANION GAP 15.3 mmol/L (8-16); BILIRUBIN,TOTAL 0.5 mg/dL (0.2-1.2); CALCIUM 9.3 mg/dL (8.4-10.2); CREATININE, SERUM 1.9 mg/dL (0.57-1.11); POTASSIUM 4.3 mmol/L (3.5-5.1)
[2023-07-27 11:02] LABS: BACTERIA,URINE MODERATE /HPF; EPITHELIAL CELLS,URINE FEW /LPF; RBC,URINE 0-5 /HPF (0-5); TRANSITIONAL EPI CELLS,URINE FEW
[2023-07-27] MEDS ORDERED: DICYCLOMINE HCL20 MG PO (12:00)
== END 2023-07-27 12:28 | disposition home or self-care (01) ==
LOC: ER 09:48
DX: R10.31 Right lower quadrant pain (principal); I10 Essential (primary) hypertension; N28.9 Disorder of kidney and ureter, unspecified; I50.9 Heart failure, unspecified; I48.91 Unspecified atrial fibrillation; E03.9 Hypothyroidism, unspecified; I25.10 Atherosclerotic heart disease of native coronary artery without angina pectoris; K21.9 Gastro-esophageal reflux disease without esophagitis; Z85.3 Personal history of malignant neoplasm of breast; R94.31 Abnormal electrocardiogram [ECG] [EKG]
CPT/HCPCS: 36415; 74176; 80053; 81001; 83690; 84484; 85025; 93005; 99284; J7030